=== PATIENT | male | born 1980 | race Hispanic/Latino ===

== ENCOUNTER 2016-09-19 00:27 | Emergency (ER) | payer BC, OTHER ==
[2016-09-19 00:36] VITALS: RESP 16; TEMP 98; O2SAT 98; BMI 26.2
--- NOTE | 2016-09-19 01:19 | ED PDOC ---
Arrival/HPI - General Chief Complaint: Trauma Time Seen by Provider: 09/19/16 01:13 Historian: Patient - History of Present Illness Narrative History of Present Illness (Text): 09/19/16 01:14 Mike Vilchis is a 36 year old male, with no significant past medical history , presents to the emergency department complaining of pain to left thumb and wrist, and abrasion to left knee s/p mechanical fall. Patient states that is sustained these injuries after getting tripped up on uneven concrete. Denies any trauma to head, or loss of consciousness. Denies any weakness/ numbness to the extremities. Denies any headache, dizziness, chest pain, shortness of breath , or any other complaints at this time. Tetanus up to date. Time/Duration: 1-3 hours Symptom Onset: Sudden Symptom Course: Unchanged Severity Level: Mild Activities at Onset: Significant Past Medical History - Provider Review Nursing Documentation Reviewed: Yes - Psychiatric Hx Substance Use: No - Surgical History Hx Orthopedic Surgery: Yes (R foot) Family/Social History - Physician Review Nursing Documentation Reviewed: Yes Family/Social History: No Known Family HX Smoking Status: Never Smoked Hx Alcohol Use: Yes Frequency of alcohol use: Socially Hx Substance Use: No Allergies/Home Meds Allergies/Adverse Reactions: Allergies No Known Allergies Allergy (Verified 05/30/15 12:10) Review of Systems - Physician Review All systems were reviewed & negative as marked: Yes - Review of Systems Constitutional: Normal. absent: Fatigue, Fevers Respiratory: Normal. absent: SOB, Cough Cardiovascular: Normal. absent: Chest Pain Gastrointestinal: Normal. absent: Abdominal Pain, Diarrhea, Nausea, Vomiting Musculoskeletal: Other (abrasion to left knee. left wrist and thumb pain ) Neurological: Normal. absent: Headache, Dizziness Psychiatric: Normal Physical Exam - Physical Exam Narrative Physical Exam (Text): 09/19/16 01:21 Constitutional: No acute distress. Head: Normocephalic. Atraumatic. Eyes: PERRL. Neck: Supple. GI: Soft. Nontender. Nondistended. Back: No CVA tenderness. Musculoskeletal: No scaphoid tenderness. Full range of motion of left wrist, elbow, and shoulder. Full range of motion to left knee. Mild tenderness to left wrist and 5th digit. Superficial abrasion on left knee. Skin: No rash. Neurologic: Alert, no focal deficit. Vital Signs Reviewed: Yes Vital Signs Temp Pulse Resp BP Pulse Ox 09/19/16 03:13 72 16 118/80 98 09/19/16 00:35 98.0 F 70 16 116/71 98 Temperature: Afebrile Blood Pressure: Normal Pulse: Regular Respiratory Rate: Normal Appearance: Positive for: Well-Appearing, Non-Toxic, Comfortable Pain Distress: None Mental Status: Positive for: Alert and Oriented X 3 Medical Decision Making ED Course and Treatment: 09/19/16 01:25 Impression: A 36 year old male who presents to the emergency department complaining of pain to left thumb, wrist, and abrasion to left knee. Plan: -- Motrin -- Left hand X-ray -- Left wrist X-ray -- Left knee with patella X-ray -- Reassess and disposition Progress Notes: 09/19/16 01:27 Patient requested oral Motrin for pain relief. Decline parenteral analgesia. 09/19/16 02:57 X-ray results reviewed: negative for any acute fracture or dislocation. Patient is stable for discharge. Advised to present to emergency department for new or worsening symptoms, and follow up with PMD within few days. - RAD Interpretation Narrative RAD Interpretations (Text): EXAM: XR Left Knee, 3 views FINDINGS: Bones/joints: Unremarkable. No acute fracture. No dislocation. Soft tissues: Unremarkable. IMPRESSION: No acute fracture or dislocation. EXAM: XR Left Wrist Complete, 3 or More Views FINDINGS: Bones/joints: Unremarkable. No acute fracture. No dislocation. Soft tissues: Unremarkable. No radiopaque foreign body. IMPRESSION: No acute fracture or dislocation. EXAM: XR Left Hand Complete, 3 or More Views FINDINGS: Bones/joints: Unremarkable. No acute fracture. No dislocation. Soft tissues: Unremarkable. No radiopaque foreign body. IMPRESSION: No acute fracture or dislocation. Radiology Orders: 09/19/16 01:13 HAND LEFT 3 VIEWS ROUTINE [RAD] Stat KNEE WITH PATELLA LEFT 3 VIEW [RAD] Stat WRIST, LEFT 3 VIEWS [RAD] Stat Binder Folder Operator: Radiologist - Medication Orders Current Medication Orders: Discontinued Medications Ibuprofen (Motrin Tab) 600 mg PO STAT STA Stop: 09/19/16 01:14 Last Admin: 09/19/16 01:28 Dose: 600 mg - Scribe Statement The provider has reviewed the documentation as recorded by the Diaz Ferrer Provider Attestation: All medical record entries made by the Scribe were at my direction and personally dictated by me. I have reviewed the chart and agree that the record accurately reflects my personal performance of the history, physical exam, medical decision making, and the department course for this patient. I have also personally directed, reviewed, and agree with the discharge instructions and disposition. Disposition/Present on Arrival - Present on Arrival Any Indicators Present on Arrival: No History of DVT/PE: No History of Uncontrolled Diabetes: No Urinary Catheter: No History of Decub. Ulcer: No History Surgical Site Infection Following: None - Disposition Have Diagnosis and Disposition been Completed?: Yes Diagnosis: Wrist sprain, Knee contusion Disposition: HOME/ ROUTINE Disposition Time: 03:09 Patient Plan: Discharge Condition: STABLE Discharge Instructions (ExitCare): Knee Pain (ED), Wrist Sprain (ED) Forms: WORK NOTE
[2016-09-19 03:14] VITALS: BP 118/80; PULSE 72
--- NOTE | 2016-09-19 08:49 | RAD ---
PROCEDURE: Left Knee Radiographs. HISTORY: Pain. COMPARISON: None. FINDINGS: BONES: Normal. No fracture. JOINTS: Normal. No osteoarthritis. JOINT EFFUSION: None. OTHER FINDINGS: None. IMPRESSION: Normal radiographs of the left knee.
--- NOTE | 2016-09-19 08:50 | RAD ---
PROCEDURE: Left Wrist Radiographs. HISTORY: fall, wrist pain COMPARISON: None. FINDINGS: BONES: Normal. No fracture. JOINTS: Normal. No dislocation. SOFT TISSUES: Normal. OTHER FINDINGS: None. IMPRESSION: Normal left wrist radiographs.
--- NOTE | 2016-09-19 08:52 | RAD ---
PROCEDURE: Left Hand Radiographs. HISTORY: fall, hand pain COMPARISON: None. FINDINGS: BONES: Normal. No fracture. JOINTS: Normal. No osteoarthritic changes. SOFT TISSUES: Normal. OTHER FINDINGS: None. IMPRESSION: Normal left hand radiographs.
== END 2016-09-19 03:14 | disposition home or self-care (01) ==
LOC: ED 00:27
DX: S63.502A Unspecified sprain of left wrist, initial encounter (principal); S80.02XA Contusion of left knee, initial encounter; W19.XXXA Unspecified fall, initial encounter